=== PATIENT | male | born 1955 | race Caucasian/White ===

== ENCOUNTER → 2019-08-24 08:40 | Outpatient (BNVA) | payer BC, OTHER, SELFPAY | PROVIDERS: Family Provider Family Medicine; PCP Internal Medicine Rheumatology; Referring Provider Internal Medicine Rheumatology; Visit Provider Internal Medicine Rheumatology | DX: M05.79 Rheumatoid arthritis with rheumatoid factor of multiple sites without organ or systems involvement (principal); Z79.899 Other long term (current) drug therapy | CPT/HCPCS: 36415; 96365; 80076; 85025; 96374; J3262 ==

== ENCOUNTER 2019-08-24 09:00 | Outpatient (CLI) | payer BC, SELFPAY | END 2019-08-24 09:01 | disposition home or self-care (01) | LOC: RHEOACUTE 09-10 14:41 | PROVIDERS: Family Provider Family Medicine; PCP Internal Medicine Rheumatology; Visit Provider Internal Medicine Rheumatology | DX: M05.79 Rheumatoid arthritis with rheumatoid factor of multiple sites without organ or systems involvement (principal) | CPT/HCPCS: J3262 ==

== ENCOUNTER 2019-09-26 08:59 | Outpatient (CLI) | payer BC, OTHER, SELFPAY ==
[2019-09-26 09:10] VITALS: BP 120/80; PULSE 72; RESP 16; TEMP 36.7; O2SAT 96
[2019-09-26 10:30] VITALS: BP 131/84; PULSE 69; RESP 16; TEMP 36.6; O2SAT 96
== END 2019-09-26 09:00 | disposition home or self-care (01) ==
LOC: RHEOACUTE 08:59
PROVIDERS: Family Provider Family Medicine; PCP Internal Medicine Rheumatology; Visit Provider Internal Medicine Rheumatology
DX: M05.79 Rheumatoid arthritis with rheumatoid factor of multiple sites without organ or systems involvement (principal); Z79.899 Other long term (current) drug therapy
CPT/HCPCS: 36415; 80076; 96365; J3262

== ENCOUNTER → 2019-09-26 09:04 | Outpatient (BNVA) | payer BC, SELFPAY | PROVIDERS: Family Provider Family Medicine; PCP Internal Medicine Rheumatology; Visit Provider Internal Medicine Rheumatology | DX: M05.79 Rheumatoid arthritis with rheumatoid factor of multiple sites without organ or systems involvement (principal) | CPT/HCPCS: 85025 ==

== ENCOUNTER 2019-10-24 08:48 | Outpatient (CLI) | payer BC, SELFPAY ==
[2019-10-24 09:00] VITALS: BP 130/85; PULSE 65; RESP 16; TEMP 36.4; O2SAT 95
[2019-10-24 10:45] VITALS: BP 124/74; PULSE 58; RESP 16; TEMP 36.4; O2SAT 92
== END 2019-10-24 08:49 | disposition home or self-care (01) ==
LOC: RHEOACUTE 08:49
PROVIDERS: Family Provider Family Medicine; PCP Internal Medicine Rheumatology; Visit Provider Internal Medicine Rheumatology
DX: M05.79 Rheumatoid arthritis with rheumatoid factor of multiple sites without organ or systems involvement (principal); Z79.899 Other long term (current) drug therapy; Z11.59 Encounter for screening for other viral diseases; Z11.1 Encounter for screening for respiratory tuberculosis; Z72.89 Other problems related to lifestyle
CPT/HCPCS: 36415; 80076; 82565; 85651; 86140; 86480; 86704; 86803; 87340; 96365; J3262

== ENCOUNTER → 2019-10-24 09:46 | Outpatient (BNVA) | payer BC, SELFPAY | PROVIDERS: Family Provider Family Medicine; PCP Internal Medicine Rheumatology; Visit Provider Internal Medicine Rheumatology | DX: M05.79 Rheumatoid arthritis with rheumatoid factor of multiple sites without organ or systems involvement (principal); Z79.899 Other long term (current) drug therapy | CPT/HCPCS: 85025 ==

== ENCOUNTER 2019-11-21 08:39 | Outpatient (CLI) | payer BC, SELFPAY ==
[2019-11-21 09:00] VITALS: BP 124/85; PULSE 96; RESP 16; TEMP 36.4; O2SAT 96
[2019-11-21 10:59] VITALS: BP 130/86; PULSE 54; RESP 16; TEMP 36.4
== END 2019-11-21 08:40 | disposition home or self-care (01) ==
LOC: RHEOACUTE 08:39
PROVIDERS: Family Provider Family Medicine; PCP Internal Medicine Rheumatology; Visit Provider Internal Medicine Rheumatology
DX: M05.79 Rheumatoid arthritis with rheumatoid factor of multiple sites without organ or systems involvement (principal)
CPT/HCPCS: 96365; J3262

== ENCOUNTER 2019-12-19 09:30 | Outpatient (CLI) | payer BC, SELFPAY ==
[2019-12-19 09:30] VITALS: BP 135/85; PULSE 57; RESP 16; TEMP 36.6; O2SAT 97
[2019-12-19 11:24] VITALS: BP 122/82; PULSE 57; RESP 16; TEMP 36.6; O2SAT 97
== END 2019-12-19 09:31 | disposition home or self-care (01) ==
LOC: RHEOACUTE 09:30
PROVIDERS: Family Provider Family Medicine; PCP Internal Medicine Rheumatology; Visit Provider Internal Medicine Rheumatology
DX: Z79.899 Other long term (current) drug therapy (principal); M05.79 Rheumatoid arthritis with rheumatoid factor of multiple sites without organ or systems involvement
CPT/HCPCS: 36415; 85025; 96365; J3262

== ENCOUNTER 2020-02-04 08:52 | Outpatient (CLI) | payer BC, SELFPAY ==
[2020-02-04 09:11] VITALS: BP 125/81; PULSE 53; RESP 16; TEMP 36.8; O2SAT 98
[2020-02-04 11:05] VITALS: BP 118/78; PULSE 55; RESP 16; TEMP 36.7; O2SAT 98
== END 2020-02-04 08:53 | disposition home or self-care (01) ==
LOC: RHEOACUTE 08:53
PROVIDERS: Family Provider Family Medicine; PCP Internal Medicine Rheumatology; Visit Provider Internal Medicine Rheumatology
DX: M05.79 Rheumatoid arthritis with rheumatoid factor of multiple sites without organ or systems involvement (principal)
CPT/HCPCS: 96365; J3262

== ENCOUNTER → 2020-03-12 10:01 | Outpatient (BNVA) | payer BC, SELFPAY | PROVIDERS: Family Provider Family Medicine; PCP Internal Medicine Rheumatology; Visit Provider Family Medicine | DX: M25.521 Pain in right elbow (principal) | CPT/HCPCS: 73080; 85025 ==

== ENCOUNTER 2020-04-15 08:52 | Outpatient (CLI) | payer BC, SELFPAY ==
[2020-04-15 09:01] VITALS: BP 148/88; PULSE 62; RESP 16; TEMP 36.7; O2SAT 96
[2020-04-15 10:01] VITALS: BMI 32.2
--- NOTE | 2020-04-15 10:03 | PC.NURSE ---
Reviewed home medications with pt. Contacted Dr. Honeycutt's office for dosages. Printed home med list for pt.
[2020-04-15 11:39] VITALS: BP 148/92; PULSE 52; RESP 16; O2SAT 96
--- NOTE | 2020-04-15 11:39 | PC.NURSE ---
Copy of home med list given to pt.
== END 2020-04-15 08:53 | disposition home or self-care (01) ==
LOC: RHEOACUTE 08:52
PROVIDERS: Family Provider Family Medicine; PCP Internal Medicine Rheumatology; Visit Provider Internal Medicine Rheumatology
DX: M05.79 Rheumatoid arthritis with rheumatoid factor of multiple sites without organ or systems involvement (principal)
CPT/HCPCS: 80076; 85025; 96365; J3262

== ENCOUNTER 2020-05-15 09:00 | Outpatient (CLI) | payer BC, SELFPAY ==
[2020-05-15 09:04] VITALS: BP 126/80; PULSE 52; RESP 16; TEMP 36.3; O2SAT 95
--- NOTE | 2020-05-15 09:38 | PC.NURSE ---
Pt denies exposure to COVID or any symptoms. Discussed with pt that he is at increased risk for infection including COVID 19. Pt verbalizes understanding. Pt had questions regarding flu and pneumonia vaccine. Discussed vaccines. Left voicemail for Dr. Honeycutt's office for orders.
--- NOTE | 2020-05-15 11:06 | PC.NURSE ---
1100 Infusion complete. BP 106/72 HR 48. Pt denies dizzy spells or N/V or chest pain. Apical pulse 52. Discussed that he needs to notify PCP especially if becomes symptomatic. Verbalized understanding.
[2020-05-15 11:08] VITALS: BP 106/72; PULSE 52; RESP 16; O2SAT 96
== END 2020-05-15 09:01 | disposition home or self-care (01) ==
LOC: RHEOACUTE 09:00
PROVIDERS: Family Provider Family Medicine; PCP Internal Medicine Rheumatology; Visit Provider Internal Medicine Rheumatology
DX: M05.79 Rheumatoid arthritis with rheumatoid factor of multiple sites without organ or systems involvement (principal)
CPT/HCPCS: 96365; J3262

== ENCOUNTER 2020-06-18 08:45 | Outpatient (CLI) | payer BC, SELFPAY ==
[2020-06-18 09:03] VITALS: BP 116/74; PULSE 58; RESP 16; TEMP 36.6; O2SAT 97
--- NOTE | 2020-06-18 09:29 | PC.NURSE ---
Labs obtained with IV start to LAC. Tolerated well.
[2020-06-18 09:34] VITALS: BMI 31.9
[2020-06-18 10:46] VITALS: BP 109/73; PULSE 58; RESP 16; O2SAT 97
== END 2020-06-18 08:46 | disposition home or self-care (01) ==
LOC: RHEOACUTE 08:45
PROVIDERS: Family Provider Family Medicine; PCP Internal Medicine Rheumatology; Visit Provider Internal Medicine Rheumatology
DX: M05.79 Rheumatoid arthritis with rheumatoid factor of multiple sites without organ or systems involvement (principal)
CPT/HCPCS: 80076; 82565; 85025; 85651; 86140; 96365; J3262

== ENCOUNTER → 2020-06-24 09:16 | Outpatient (BNVA) | payer BC, SELFPAY | PROVIDERS: Family Provider Family Medicine; PCP Internal Medicine Rheumatology; Visit Provider Internal Medicine Rheumatology | DX: Z23 Encounter for immunization (principal); Z79.899 Other long term (current) drug therapy | CPT/HCPCS: 90471 ==

== ENCOUNTER 2020-07-16 09:17 | Outpatient (CLI) | payer BC, SELFPAY ==
[2020-07-16 09:25] VITALS: BP 125/76; PULSE 62; RESP 16; TEMP 36.6; O2SAT 96
[2020-07-16 11:06] VITALS: BP 119/76; PULSE 57; RESP 16; O2SAT 97
== END 2020-07-16 09:18 | disposition home or self-care (01) ==
LOC: RHEOACUTE 09:17
PROVIDERS: Family Provider Family Medicine; PCP Internal Medicine Rheumatology; Visit Provider Internal Medicine Rheumatology
DX: M05.79 Rheumatoid arthritis with rheumatoid factor of multiple sites without organ or systems involvement (principal)
CPT/HCPCS: 96365; J3262

== ENCOUNTER → 2020-08-06 08:42 | Outpatient (BNVA) | payer BC, SELFPAY | PROVIDERS: Family Provider Family Medicine; PCP Internal Medicine Rheumatology; Visit Provider Family Medicine | DX: Z20.828 Contact with and (suspected) exposure to other viral communicable diseases (principal); R05 Cough; R50.9 Fever, unspecified | CPT/HCPCS: 87400; 87635 ==

== ENCOUNTER 2020-08-26 08:56 | Outpatient (CLI) | payer BC, OTHER, SELFPAY ==
[2020-08-26 09:00] VITALS: BP 142/88; PULSE 61; RESP 16; TEMP 36.3; O2SAT 98
[2020-08-26 11:04] VITALS: BMI 32.4
[2020-08-26 11:17] VITALS: BP 134/86; PULSE 52; RESP 16; O2SAT 98
== END 2020-08-26 08:57 | disposition home or self-care (01) ==
LOC: RHEOACUTE 08:57
PROVIDERS: Family Provider Family Medicine; PCP Internal Medicine Rheumatology; Visit Provider Internal Medicine Rheumatology
DX: M05.79 Rheumatoid arthritis with rheumatoid factor of multiple sites without organ or systems involvement (principal)
CPT/HCPCS: 96365; J3262

== ENCOUNTER 2020-09-24 08:50 | Outpatient (CLI) | payer BC, OTHER, SELFPAY ==
[2020-09-24 09:05] VITALS: BP 142/86; PULSE 63; RESP 16; TEMP 36.7; O2SAT 99
[2020-09-24 09:34] LABS: Basophils % 0.8 %; Eosinophils # 0.1 10^3/uL (0.0-0.8); Eosinophils % 2.3 %; Hematocrit 48.8 % (42.0-52.0); Hemoglobin 15.8 g/dL (11.7-16.6); Lymphocytes # 1.6 10^3/uL (0.8-4.8); Lymphocytes % 33.9 %; Mean Corpuscular HGB Conc 32.4 g/dL (30.0-36.0); Mean Corpuscular Hemoglobin 31.9 pg (28.0-34.0); Mean Corpuscular Volume 98.4 fL (80-94); Mean Platelet Volume 9.8 fL (7.4-10.4); Monocytes # 0.6 10^3/uL (0.2-0.9); Monocytes % 11.6 %; Neutrophils # 2.47 10^3/uL (1.8-7.7); Nucleated Red Blood Cells % 0 %; Platelet Count 154 10^3/cmm (130-400); Red Blood Count 4.96 10^6/uL (4.1-5.3); Red Cell Distribution Width 12.9 % (12.1-15.1); White Blood Count 4.8 10^3/uL (4.0-10.0)
[2020-09-24 10:35] LABS: Alanine Aminotransferase 25 U/L (0-41); Albumin Level 4.7 g/dL (3.5-5.2); Alkaline Phosphatase 58 IU/L (40-130); Aspartate Amino Transferase 22 U/L (0-40); Globulin 2.4 g/dL (1.3-4.6); Total Bilirubin 0.6 mg/dL (0.15-1.2); Total Protein 7.1 g/dL (6.6-8.7)
[2020-09-24 10:40] VITALS: BP 134/80; PULSE 58; RESP 16; TEMP 37.1; O2SAT 99
--- NOTE | 2020-10-14 08:41 | PC.NURSE ---
Due to an administrative issue we are doing a late entry for clarity of the medical record. The infusion case was routine and the approximate stop time was 1030 based upon the start time of 0930.
== END 2020-09-24 08:51 | disposition home or self-care (01) ==
PROVIDERS: Family Provider Family Medicine; PCP Internal Medicine Rheumatology; Visit Provider Internal Medicine Rheumatology
DX: M05.79 Rheumatoid arthritis with rheumatoid factor of multiple sites without organ or systems involvement (principal)
CPT/HCPCS: 80076; 85025; 96365; J3262

== ENCOUNTER 2020-10-27 10:14 | Outpatient (CLI) | payer MEDICARE, BC, SELFPAY ==
[2020-10-27 10:10] VITALS: BP 124/80; PULSE 62; RESP 18; TEMP 36.7; O2SAT 98
[2020-10-27 11:59] VITALS: BP 121/82; PULSE 57; RESP 18; TEMP 36.6; O2SAT 98
== END 2020-10-27 10:15 | disposition home or self-care (01) ==
PROVIDERS: Family Provider Family Medicine; PCP Internal Medicine Rheumatology; Visit Provider Internal Medicine Rheumatology
DX: M05.79 Rheumatoid arthritis with rheumatoid factor of multiple sites without organ or systems involvement (principal)
CPT/HCPCS: 96365; J3262

== ENCOUNTER 2020-11-24 13:54 | Outpatient (CLI) | payer MEDICARE, BC, SELFPAY ==
[2020-11-24 14:10] VITALS: BP 128/78; PULSE 56; RESP 16; TEMP 36.6; O2SAT 97
[2020-11-24 14:47] LABS: Basophils # 0.1 10^3/uL (0.0-0.1); Basophils % 0.9 %; Eosinophils # 0.1 10^3/uL (0.0-0.8); Eosinophils % 1.4 %; Hematocrit 46.9 % (42.0-52.0); Hemoglobin 15.2 g/dL (11.7-16.6); Lymphocytes # 1.9 10^3/uL (0.8-4.8); Lymphocytes % 34.4 %; Mean Corpuscular HGB Conc 32.4 g/dL (30.0-36.0); Mean Corpuscular Hemoglobin 31.7 pg (28.0-34.0); Mean Corpuscular Volume 97.9 fL (80-94); Mean Platelet Volume 10.1 fL (7.4-10.4); Monocytes # 0.6 10^3/uL (0.2-0.9); Monocytes % 11.5 %; Neutrophils # 2.86 10^3/uL (1.8-7.7); Neutrophils % 51.4 %; Nucleated Red Blood Cells % 0 %; Platelet Count 163 10^3/cmm (130-400); Red Blood Count 4.79 10^6/uL (4.1-5.3); Red Cell Distribution Width 12.8 % (12.1-15.1); White Blood Count 5.6 10^3/uL (4.0-10.0)
[2020-11-24 15:28] LABS: Alanine Aminotransferase 22 U/L (0-41); Albumin Level 4.3 g/dL (3.5-5.2); Alkaline Phosphatase 48 IU/L (40-130); Aspartate Amino Transferase 21 U/L (0-40); Globulin 2.1 g/dL (1.3-4.6); Total Bilirubin 0.7 mg/dL (0.15-1.2); Total Protein 6.4 g/dL (6.6-8.7)
[2020-11-24 15:35] VITALS: BP 127/76; PULSE 56; RESP 16; TEMP 36.4; O2SAT 99
== END 2020-11-24 13:55 | disposition home or self-care (01) ==
PROVIDERS: Family Provider Family Medicine; PCP Internal Medicine Rheumatology; Visit Provider Internal Medicine Rheumatology
DX: M05.79 Rheumatoid arthritis with rheumatoid factor of multiple sites without organ or systems involvement (principal)
CPT/HCPCS: 80076; 85025; 96365; J3262

== ENCOUNTER 2020-12-22 09:57 | Outpatient (CLI) | payer MEDICARE, BC, SELFPAY ==
[2020-12-22 10:22] VITALS: BP 108/76; PULSE 55; RESP 16; TEMP 36.6; O2SAT 98
[2020-12-22 11:18] LABS: Basophils # 0.1 10^3/uL (0.0-0.1); Basophils % 0.9 %; Eosinophils # 0.1 10^3/uL (0.0-0.8); Eosinophils % 2.2 %; Hematocrit 49.4 % (42.0-52.0); Hemoglobin 15.9 g/dL (11.7-16.6); Lymphocytes # 1.6 10^3/uL (0.8-4.8); Lymphocytes % 30.1 %; Mean Corpuscular HGB Conc 32.2 g/dL (30.0-36.0); Mean Corpuscular Hemoglobin 31.9 pg (28.0-34.0); Mean Platelet Volume 10.1 fL (7.4-10.4); Monocytes # 0.5 10^3/uL (0.2-0.9); Monocytes % 9.8 %; Neutrophils # 3.05 10^3/uL (1.8-7.7); Neutrophils % 56.6 %; Nucleated Red Blood Cells % 0 %; Platelet Count 153 10^3/cmm (130-400); Red Blood Count 4.99 10^6/uL (4.1-5.3); Red Cell Distribution Width 12.8 % (12.1-15.1); White Blood Count 5.4 10^3/uL (4.0-10.0)
[2020-12-22 11:45] LABS: Hepatitis A Antibody IgM Non-Reactive (Nonreactive); Hepatitis B Core IgM Non-Reactive (Nonreactive); Hepatitis B Surface Antigen Non-Reactive (Nonreactive); Hepatitis C Virus Antibody Non-Reactive (Nonreactive)
[2020-12-22 11:59] VITALS: BP 139/82; PULSE 53; RESP 18; TEMP 37.2; O2SAT 99
== END 2020-12-22 09:58 | disposition home or self-care (01) ==
PROVIDERS: Family Provider Family Medicine; PCP Internal Medicine Rheumatology; Visit Provider Internal Medicine Rheumatology
DX: M05.79 Rheumatoid arthritis with rheumatoid factor of multiple sites without organ or systems involvement (principal); Z11.59 Encounter for screening for other viral diseases
CPT/HCPCS: 80074; 85025; 96365; J3262

== ENCOUNTER → 2021-01-09 15:16 | Outpatient (BNVA) | payer MEDICARE, BC, SELFPAY | PROVIDERS: Family Provider Family Medicine; PCP Internal Medicine Rheumatology; Visit Provider Nurse Practitioner Family | DX: R53.83 Other fatigue (principal); Z68.31 Body mass index [BMI] 31.0-31.9, adult; W57.XXXA Bitten or stung by nonvenomous insect and other nonvenomous arthropods, initial encounter; X58.XXXA Exposure to other specified factors, initial encounter | CPT/HCPCS: 82306; 86000; 86618; 86666; 86757 ==

== ENCOUNTER 2021-01-22 08:53 | Outpatient (CLI) | payer MEDICARE, BC, SELFPAY ==
[2021-01-22 09:06] VITALS: BP 117/71; PULSE 58; RESP 18; TEMP 37; O2SAT 97
[2021-01-22] MEDS: sodium chloride 0.9% 250 ML 75 ML IV (09:22)
[2021-01-22 10:45] VITALS: BP 110/65; PULSE 56; RESP 18; TEMP 36.3; O2SAT 98
== END 2021-01-22 08:54 | disposition home or self-care (01) ==
PROVIDERS: Family Provider Family Medicine; PCP Internal Medicine Rheumatology; Referring Provider Internal Medicine Rheumatology; Visit Provider Internal Medicine Rheumatology
DX: M05.79 Rheumatoid arthritis with rheumatoid factor of multiple sites without organ or systems involvement (principal)
CPT/HCPCS: 96365; J3262; J7050

== ENCOUNTER 2021-02-19 08:37 | Outpatient (CLI) | payer MEDICARE, BC, SELFPAY ==
[2021-02-19 08:53] VITALS: BP 151/93; PULSE 63; RESP 18; TEMP 36.5; O2SAT 98
[2021-02-19 09:57] LABS: Basophils # 0.1 10^3/uL (0.0-0.1); Eosinophils # 0.2 10^3/uL (0.0-0.8); Eosinophils % 3.5 %; Hematocrit 46.1 % (42.0-52.0); Hemoglobin 14.9 g/dL (11.7-16.6); Lymphocytes # 1.6 10^3/uL (0.8-4.8); Lymphocytes % 32.6 %; Mean Corpuscular HGB Conc 32.3 g/dL (30.0-36.0); Mean Corpuscular Hemoglobin 32.2 pg (28.0-34.0); Mean Corpuscular Volume 99.6 fL (80-94); Mean Platelet Volume 10.4 fL (7.4-10.4); Monocytes # 0.6 10^3/uL (0.2-0.9); Monocytes % 12.8 %; Neutrophils # 2.41 10^3/uL (1.8-7.7); Neutrophils % 49.7 %; Nucleated Red Blood Cells % 0 %; Platelet Count 153 10^3/cmm (130-400); Red Blood Count 4.63 10^6/uL (4.1-5.3); Red Cell Distribution Width 13.1 % (12.1-15.1); White Blood Count 4.9 10^3/uL (4.0-10.0)
[2021-02-19 10:46] LABS: Hepatitis A Antibody IgM Non-Reactive (Nonreactive); Hepatitis B Core AB, Total Non-Reactive (Nonreactive); Hepatitis B Surface AB 8.9 (11.5-1000); Hepatitis B Surface Antigen Non-Reactive (Nonreactive); Hepatitis C Virus Antibody Non-Reactive (Nonreactive)
[2021-02-19 11:07] VITALS: BP 152/95; PULSE 54; RESP 18; TEMP 36.6; O2SAT 98
== END 2021-02-19 08:38 | disposition home or self-care (01) ==
PROVIDERS: Family Provider Family Medicine; PCP Internal Medicine Rheumatology; Referring Provider Internal Medicine Rheumatology; Visit Provider Internal Medicine Medical Oncology
DX: M05.79 Rheumatoid arthritis with rheumatoid factor of multiple sites without organ or systems involvement (principal); Z11.59 Encounter for screening for other viral diseases
CPT/HCPCS: 36415; 85025; 86705; 86706; 86709; 86803; 87340; 96365; J3262

== ENCOUNTER 2021-03-26 08:51 | Outpatient (CLI) | payer MEDICARE, BC, SELFPAY ==
[2021-03-26 09:00] VITALS: BP 130/77; PULSE 74; RESP 18; TEMP 36.7; O2SAT 97
--- NOTE | 2021-03-26 09:26 | PC.PHAR ---
PATIENTS ACTEMRA DOSE WOULD CALCULATE TO 776MG. DUE TO ACTEMRA SHORTAGE AND VIAL SIZES AVAILABLE, ROUNDED DOSE TO 760MG
[2021-03-26 10:52] VITALS: BP 120/75; PULSE 55; RESP 18; TEMP 36.3; O2SAT 95
== END 2021-03-26 08:52 | disposition home or self-care (01) ==
PROVIDERS: PCP Internal Medicine Rheumatology; Visit Provider Internal Medicine Rheumatology
DX: M05.79 Rheumatoid arthritis with rheumatoid factor of multiple sites without organ or systems involvement (principal)
CPT/HCPCS: 96365; J3262

== ENCOUNTER 2021-04-23 09:07 | Outpatient (CLI) | payer MEDICARE, BC, SELFPAY ==
[2021-04-23 09:21] VITALS: BP 135/86; PULSE 50; RESP 18; TEMP 36.3; O2SAT 98
[2021-04-23] MEDS: sodium chloride 0.9% 250 ML 75 ML IV (10:03)
[2021-04-23 10:16] LABS: Basophils # 0.1 10^3/uL (0.0-0.1); Eosinophils # 0.1 10^3/uL (0.0-0.8); Eosinophils % 2.5 %; Hematocrit 46.4 % (42.0-52.0); Hemoglobin 15.1 g/dL (11.7-16.6); Lymphocytes # 1.5 10^3/uL (0.8-4.8); Mean Corpuscular HGB Conc 32.5 g/dL (30.0-36.0); Mean Corpuscular Hemoglobin 31.8 pg (28.0-34.0); Mean Corpuscular Volume 97.7 fl (80-94); Mean Platelet Volume 10.3 fL (7.4-10.4); Monocytes # 0.5 10^3/uL (0.2-0.9); Monocytes % 10.3 %; Neutrophils # 2.66 10^3/uL (1.8-7.7); Nucleated Red Blood Cells % 0 %; Platelet Count 153 10^3/cmm (130-400); Red Blood Count 4.75 10^6/uL (4.1-5.3); Red Cell Distribution Width 12.8 % (12.1-15.1); White Blood Count 4.8 10^3/uL (4.0-10.0)
[2021-04-23 11:06] VITALS: BP 136/91; PULSE 59; RESP 18; TEMP 36.2; O2SAT 99
[2021-04-23 11:18] LABS: Hepatitis A Antibody IgM Non-Reactive (Nonreactive); Hepatitis B Core AB, Total Non-Reactive (Nonreactive); Hepatitis B Surface AB < 3.5 (11.5-1000); Hepatitis B Surface Antigen Non-Reactive (Nonreactive); Hepatitis C Virus Antibody Non-Reactive (Nonreactive)
== END 2021-04-23 09:08 | disposition home or self-care (01) ==
PROVIDERS: PCP Internal Medicine Rheumatology; Referring Provider Internal Medicine Rheumatology; Visit Provider Internal Medicine Rheumatology
DX: M05.79 Rheumatoid arthritis with rheumatoid factor of multiple sites without organ or systems involvement (principal); Z79.899 Other long term (current) drug therapy; Z11.59 Encounter for screening for other viral diseases
CPT/HCPCS: 85025; 86705; 86706; 86709; 86803; 87340; 96365; J3262; J7050

== ENCOUNTER 2021-05-21 08:54 | Outpatient (CLI) | payer MEDICARE, BC, SELFPAY ==
[2021-05-21 09:07] VITALS: BP 132/90; PULSE 61; RESP 20; TEMP 36.7; O2SAT 99
[2021-05-21] MEDS: sodium chloride 0.9% 250 ML 75 ML IV (09:33)
[2021-05-21 10:48] VITALS: BP 122/76; PULSE 53; RESP 18; TEMP 36.6; O2SAT 99
== END 2021-05-21 08:55 | disposition home or self-care (01) ==
PROVIDERS: PCP Internal Medicine Rheumatology; Visit Provider Internal Medicine Rheumatology
DX: M05.79 Rheumatoid arthritis with rheumatoid factor of multiple sites without organ or systems involvement (principal)
CPT/HCPCS: 96365; J3262; J7050

== ENCOUNTER → 2021-05-25 09:49 | Outpatient (BNVA) | payer MEDICARE, BC, SELFPAY | PROVIDERS: PCP Internal Medicine Rheumatology; Visit Provider Nurse Practitioner Family | DX: M25.562 Pain in left knee (principal); M17.12 Unilateral primary osteoarthritis, left knee | CPT/HCPCS: 73562 ==

== ENCOUNTER 2021-06-18 08:51 | Outpatient (CLI) | payer MEDICARE, BC, SELFPAY ==
[2021-06-18 09:43] VITALS: BP 135/82; PULSE 57; RESP 18; TEMP 36.7; O2SAT 96
[2021-06-18] MEDS: sodium chloride 0.9% 250 ML 75 ML IV (09:49)
[2021-06-18 10:11] LABS: Basophils % 0.9 %; Eosinophils # 0.1 10^3/uL (0.0-0.8); Eosinophils % 2.8 %; Hematocrit 46.7 % (42.0-52.0); Hemoglobin 15.2 g/dL (11.7-16.6); Lymphocytes # 1.8 10^3/uL (0.8-4.8); Lymphocytes % 39.3 %; Mean Corpuscular HGB Conc 32.5 g/dL (30.0-36.0); Mean Corpuscular Hemoglobin 32.2 pg (28.0-34.0); Mean Corpuscular Volume 98.9 fl (80-94); Mean Platelet Volume 10.1 fL (7.4-10.4); Monocytes # 0.5 10^3/uL (0.2-0.9); Monocytes % 11.5 %; Neutrophils # 2.12 10^3/uL (1.8-7.7); Neutrophils % 45.3 %; Nucleated Red Blood Cells % 0 %; Platelet Count 162 10^3/cmm (130-400); Red Blood Count 4.72 10^6/uL (4.1-5.3); Red Cell Distribution Width 12.7 % (12.1-15.1); White Blood Count 4.7 10^3/uL (4.0-10.0)
[2021-06-18 10:27] LABS: Alanine Aminotransferase 29 U/L (0-41); Albumin Level 4.4 g/dL (3.5-5.2); Alkaline Phosphatase 47 IU/L (40-130); Aspartate Amino Transferase 23 U/L (0-40); Globulin 2.3 g/dL (1.3-4.6); Total Bilirubin 0.4 mg/dL (0.15-1.2); Total Protein 6.7 g/dL (6.6-8.7)
[2021-06-18 11:22] VITALS: BP 144/92; PULSE 59; RESP 18; TEMP 36.7; O2SAT 99
== END 2021-06-18 08:52 | disposition home or self-care (01) ==
LOC: ONCMED 08:53
PROVIDERS: PCP Internal Medicine Rheumatology; Visit Provider Internal Medicine Rheumatology
DX: M05.79 Rheumatoid arthritis with rheumatoid factor of multiple sites without organ or systems involvement (principal)
CPT/HCPCS: 80076; 85025; 96365; J3262; J7050

== ENCOUNTER 2021-07-16 09:00 | Outpatient (CLI) | payer MEDICARE, BC, SELFPAY ==
[2021-07-16 09:16] VITALS: BP 127/89; PULSE 72; RESP 18; TEMP 36.9; O2SAT 94
[2021-07-16] MEDS: sodium chloride 0.9% 250 ML 75 ML IV (09:46)
[2021-07-16 10:54] VITALS: BP 156/83; PULSE 72; RESP 18; TEMP 36.4; O2SAT 96
== END 2021-07-16 09:01 | disposition home or self-care (01) ==
LOC: ONCMED 09:06
PROVIDERS: PCP Internal Medicine Rheumatology; Referring Provider Internal Medicine Rheumatology; Visit Provider Internal Medicine Rheumatology
DX: M05.79 Rheumatoid arthritis with rheumatoid factor of multiple sites without organ or systems involvement (principal)
CPT/HCPCS: 96365; J3262; J7050

== ENCOUNTER → 2021-08-03 15:54 | Outpatient (BNVA) | payer MEDICARE, BC, SELFPAY | PROVIDERS: PCP Internal Medicine Rheumatology; Visit Provider Nurse Practitioner Family | DX: R03.0 Elevated blood-pressure reading, without diagnosis of hypertension (principal); R53.83 Other fatigue; E55.9 Vitamin D deficiency, unspecified; E78.5 Hyperlipidemia, unspecified | CPT/HCPCS: 80053; 80061; 82306; 84443; 85025 ==

== ENCOUNTER 2021-08-13 08:54 | Outpatient (CLI) | payer MEDICARE, BC, SELFPAY ==
[2021-08-13] MEDS: sodium chloride 0.9% 250 ML 75 ML IV (09:05)
[2021-08-13 09:09] VITALS: BP 135/81; PULSE 61; RESP 18; TEMP 36.8; O2SAT 97
[2021-08-13 10:46] VITALS: BP 111/73; PULSE 56; RESP 18; TEMP 36.9; O2SAT 96
== END 2021-08-13 08:55 | disposition home or self-care (01) ==
PROVIDERS: PCP Internal Medicine Rheumatology; Referring Provider Internal Medicine Rheumatology; Visit Provider Internal Medicine Medical Oncology
DX: M05.79 Rheumatoid arthritis with rheumatoid factor of multiple sites without organ or systems involvement
CPT/HCPCS: 96365; J3262; J7050

== ENCOUNTER 2021-09-10 08:48 | Outpatient (CLI) | payer MEDICARE, BC, OTHER, SELFPAY ==
[2021-09-10 09:14] VITALS: BP 135/85; PULSE 62; RESP 18; TEMP 37.1; O2SAT 98
[2021-09-10] MEDS: sodium chloride 0.9% 250 ML 50 ML IV (09:37)
[2021-09-10 09:57] LABS: Basophils % 0.8 %; Eosinophils # 0.1 10^3/uL (0.0-0.8); Hematocrit 47.4 % (42.0-52.0); Hemoglobin 15.9 g/dL (11.7-16.6); Lymphocytes # 1.5 10^3/uL (0.8-4.8); Lymphocytes % 28.9 %; Mean Corpuscular HGB Conc 33.5 g/dL (30.0-36.0); Mean Corpuscular Hemoglobin 32.9 pg (28.0-34.0); Mean Corpuscular Volume 98.1 fl (80-94); Mean Platelet Volume 10.6 fL (7.4-10.4); Monocytes # 0.4 10^3/uL (0.2-0.9); Monocytes % 7.3 %; Neutrophils # 3.22 10^3/uL (1.8-7.7); Neutrophils % 61.6 %; Nucleated Red Blood Cells % 0 %; Platelet Count 142 10^3/cmm (130-400); Red Blood Count 4.83 10^6/uL (4.1-5.3); Red Cell Distribution Width 12.6 % (12.1-15.1); White Blood Count 5.2 10^3/uL (4.0-10.0)
[2021-09-10 10:37] LABS: Alanine Aminotransferase 23 U/L (0-41); Albumin Level 4.5 g/dL (3.5-5.2); Alkaline Phosphatase 52 IU/L (40-130); Aspartate Amino Transferase 20 U/L (0-40); Globulin 2.1 g/dL (1.3-4.6); Total Bilirubin 0.7 mg/dL (0.15-1.2); Total Protein 6.6 g/dL (6.6-8.7)
[2021-09-10 10:42] VITALS: BP 152/93; PULSE 59; RESP 18; TEMP 36.7; O2SAT 95
== END 2021-09-10 08:49 | disposition home or self-care (01) ==
PROVIDERS: PCP Internal Medicine Rheumatology; Referring Provider Internal Medicine Rheumatology; Visit Provider Internal Medicine Rheumatology
DX: M05.79 Rheumatoid arthritis with rheumatoid factor of multiple sites without organ or systems involvement (principal); Z79.899 Other long term (current) drug therapy
CPT/HCPCS: 80076; 85025; 96365; J3262; J7050

== ENCOUNTER 2021-10-07 08:52 | Outpatient (CLI) | payer MEDICARE, BC, SELFPAY ==
[2021-10-07 09:26] VITALS: BP 123/77; PULSE 68; RESP 18; TEMP 36.9; O2SAT 97
[2021-10-07] MEDS: sodium chloride 0.9% 250 ML 75 ML IV (09:33)
[2021-10-07 09:36] LABS: Basophils # 0.1 10^3/uL (0.0-0.1); Basophils % 1.1 %; Eosinophils # 0.1 10^3/uL (0.0-0.8); Eosinophils % 1.8 %; Hematocrit 47.3 % (42.0-52.0); Hemoglobin 15.7 g/dL (11.7-16.6); Lymphocytes # 1.5 10^3/uL (0.8-4.8); Lymphocytes % 34.3 %; Mean Corpuscular HGB Conc 33.2 g/dL (30.0-36.0); Mean Corpuscular Hemoglobin 32.2 pg (28.0-34.0); Mean Corpuscular Volume 96.9 fl (80-94); Mean Platelet Volume 10.2 fL (7.4-10.4); Monocytes # 0.5 10^3/uL (0.2-0.9); Monocytes % 11.4 %; Neutrophils # 2.25 10^3/uL (1.8-7.7); Neutrophils % 51.2 %; Nucleated Red Blood Cells % 0 %; Platelet Count 171 10^3/cmm (130-400); Red Blood Count 4.88 10^6/uL (4.1-5.3); Red Cell Distribution Width 12.7 % (12.1-15.1); White Blood Count 4.4 10^3/uL (4.0-10.0)
[2021-10-07 09:54] LABS: Alanine Aminotransferase 22 U/L (0-41); Albumin Level 4.8 g/dL (3.5-5.2); Alkaline Phosphatase 51 IU/L (40-130); Aspartate Amino Transferase 21 U/L (0-40); Globulin 2.3 g/dL (1.3-4.6); Total Bilirubin 0.8 mg/dL (0.15-1.2); Total Protein 7.1 g/dL (6.6-8.7)
[2021-10-07 10:43] VITALS: BP 123/81; PULSE 58; RESP 18; TEMP 36.4; O2SAT 98
== END 2021-10-07 08:53 | disposition home or self-care (01) ==
PROVIDERS: PCP Internal Medicine Rheumatology; Referring Provider Internal Medicine Rheumatology; Visit Provider Internal Medicine Medical Oncology
DX: M05.79 Rheumatoid arthritis with rheumatoid factor of multiple sites without organ or systems involvement (principal); Z87.891 Personal history of nicotine dependence
CPT/HCPCS: 80076; 85025; 96365; J3262; J7050

== ENCOUNTER 2021-11-05 08:51 | Outpatient (CLI) | payer MEDICARE, BC, SELFPAY ==
[2021-11-05 09:05] VITALS: BP 125/83; PULSE 55; RESP 18; TEMP 36.8; O2SAT 91
[2021-11-05] MEDS: sodium chloride 0.9% 250 ML 75 ML IV (09:28)
[2021-11-05 10:46] VITALS: BP 153/99; PULSE 54; RESP 18; TEMP 36.8; O2SAT 99
== END 2021-11-05 08:52 | disposition home or self-care (01) ==
PROVIDERS: PCP Internal Medicine Rheumatology; Referring Provider Internal Medicine Rheumatology; Visit Provider Internal Medicine Rheumatology
DX: D50.9 Iron deficiency anemia, unspecified (principal); M05.79 Rheumatoid arthritis with rheumatoid factor of multiple sites without organ or systems involvement; Z79.899 Other long term (current) drug therapy
CPT/HCPCS: 96365; J3262; J7050

== ENCOUNTER → 2022-01-21 11:01 | Outpatient (BNVA) | payer MEDICARE, BC, SELFPAY | PROVIDERS: PCP Internal Medicine Rheumatology; Visit Provider Family Medicine | DX: T14.8XXA Other injury of unspecified body region, initial encounter (principal); W57.XXXA Bitten or stung by nonvenomous insect and other nonvenomous arthropods, initial encounter; M19.021 Primary osteoarthritis, right elbow | CPT/HCPCS: 85025; 86618; 86666; 86757 ==

== ENCOUNTER 2022-03-15 13:25 | Outpatient (CLI) | payer MEDICARE, BC, SELFPAY ==
--- NOTE | 2022-03-15 13:00 | USCV_ITS ---
Aditya Jean-Baptiste Age: 66 Gender: M : 1955 Exam Date: 03/15/2022 13:47 Ordering Phys: Sean Goins DO Technologist: Tyesha Stein Exam Location: [facility] [place] Indication: right leg pain HISTORY: Right leg and groin pain PROCEDURES: Venous duplex imaging was performed in only the right lower extremity. The following venous structures were evaluated: common femoral vein, profunda vein, proximal portion of the greater saphenous vein, superficial femoral vein, and the popliteal vein. In addition, the posterior tibial and peroneal trunk were evaluated. FINDINGS: Negative for RLE DVT CONCLUSIONS No evidence of right lower extremity DVT. Pradeep Verduzoc MD (Electronically Signed) Final Date: 15 March 2022 15:24 S
== END 2022-03-15 13:26 | disposition home or self-care (01) ==
PROVIDERS: PCP Internal Medicine Rheumatology; Visit Provider Family Medicine
DX: I87.2 Venous insufficiency (chronic) (peripheral) (principal); M79.604 Pain in right leg
CPT/HCPCS: 93971